=== PATIENT | female | born 1970 | race Caucasian/White ===

== ENCOUNTER 2019-10-11 14:20 | Emergency (ER) | payer BC, OTHER ==
[~2019-10-11] VITALS: Ht 162.6 cm; Wt 105.7 kg
[~2019-10-11 14:20] MED LIST: AMLO5TAB PO; LISI-420 PO
[2019-10-11 14:29] VITALS: BP 144/104
--- NOTE | 2019-10-11 14:35 | NUR ---
PT TO ER LOBBY, PT ALERT AND AWAKE
--- NOTE | 2019-10-11 14:54 | NUR ---
C/O INTERMITTENT EPIGASTRIC PAIN WITH N/V/D X 2 DAYS REF FROM OUTSIDE CLINIC FOR FURTHER EVAL T0DAY
[2019-10-11] MEDS ORDERED: KETOROLAC 30 MG/ML VIAL IVP ONE (15:05)
[2019-10-11] MEDS ORDERED: NACL 0.9% 1,000 ML IV ONE (15:05)
[2019-10-11] MEDS ORDERED: ONDANSETRON 4 MG/2 ML VIAL IVP ONE (15:05)
--- NOTE | 2019-10-11 15:18 | NUR ---
PT TRANSPORTED TO RADIOLOGY
[2019-10-11 15:46] LABS: BASOPHILS # (AUTO) 0.1 K/uL (0.00-0.22); EOSINOPHILS # (AUTO) 0.4 K/uL (0-0.4); EOSINOPHILS % (AUTO) 3.6 % (0.0-4.0); HEMATOCRIT 39.2 % (36-48); HEMOGLOBIN 13.2 g/dL (12.0-16.0); LYMPHOCYTES % (AUTO) 20.8 % (20.5-51.1); MEAN CORPUSCULAR HEMOGLOBIN 31 pg (27-31); MEAN CORPUSCULAR HGB CONC 34 g/dL (33-37); MEAN CORPUSCULAR VOLUME 91.2 fL (80-94); MONOCYTES # (AUTO) 0.5 K/uL (0.8-1.0); MONOCYTES % (AUTO) 5.4 % (1.7-9.3); NEUTROPHILS # (AUTO) 6.8 K/uL (1.8-7.7); NEUTROPHILS % (AUTO) 69.2 % (42.2-75.2); PLATELET COUNT (AUTO) 302 K/uL (140-450); RED CELL DISTRIBUTION WIDTH 15.6 % (11.6-13.7); WHITE BLOOD COUNT (AUTO) 9.8 K/uL (4.8-10.8)
[2019-10-11 16:04] LABS: ANION GAP 10.7 (8-16); POTASSIUM 3.7 mmol/L (3.5-5.1)
[2019-10-11 16:05] LABS: ALBUMIN 3.6 g/dL (3.4-5.0); CREATININE 0.8 mg/dL (0.6-1.3); TOTAL BILIRUBIN 0.8 mg/dL (0.0-1.0)
[2019-10-11] MEDS ORDERED: PANTOPRAZOLE 40 MG INJ VIAL IVP ONE (16:35)
[2019-10-11 17:51] VITALS: BP 144/104
--- NOTE | 2019-10-11 17:52 | NUR ---
Patient discharged with v/s stable. Written and verbal after care instructions given and explained. Patient alert, oriented and verbalized understanding of instructions. Ambulatory with steady gait. All questions addressed prior to discharge. ID band removed. Patient advised to follow up with PMD. Rx of PRILOSEC given. Patient educated on indication of medication including possible reaction and side effects. Opportunity to ask questions provided and answered.
--- NOTE | 2019-10-12 11:38 | NUR ---
Late entry. Confirmed with RN that 0.9 NS IV completed at 1630
== END 2019-10-11 17:52 | disposition home or self-care (01) ==
LOC: MED 14:20
DX: K29.70 Gastritis, unspecified, without bleeding (principal); I10 Essential (primary) hypertension; Z90.49 Acquired absence of other specified parts of digestive tract; Z88.5 Allergy status to narcotic agent; Z79.899 Other long term (current) drug therapy
CPT/HCPCS: 36415; 74022; 80053; 81002; 81025; 83690; 85025; 96361; 96374; 96375; 99284; C9113; J1885; J2405; J7030